=== PATIENT | female | born 1965 | race Caucasian/White ===

== ENCOUNTER 2018-04-11 20:12 | Emergency (ER) | payer OTHER ==
[~2018-04-11] VITALS: Ht 165.1 cm; Wt 81.6 kg
--- NOTE | 2018-04-11 20:30 | NUR ---
PT BIBSELF COMPLAINING OF SOB WITH COUGH X 1WK. PT ALSO COMPLAINING OF BACK PAIN AND RECENT HIGH BP READINGS AT HOME WITH A HISTORY OF HTN. NOTED WHEEZING. PT IS AAOX4. SKIN WARM AND INTACT. NO ACUTE DISTRESS NOTED AT THIS TIME. WILL CONTINUE TO MONITOR, WAITING MD EVALUATION.
--- NOTE | 2018-04-11 20:33 | NUR ---
MD AT BEDSIDE FOR EVALUATION
--- NOTE | 2018-04-11 20:40 | NUR ---
CALLED RT FOR BREATHING TREATMENT
[2018-04-11] MEDS ORDERED: IPRATROPIUM NEB FS 0.5 MG/2.5 ML AMPUL.NEB ONE (20:54)
[2018-04-11] MEDS ORDERED: ALBUTEROL FS 2.5 MG/3 ML VIAL.NEB ONE (20:54)
[2018-04-11] MEDS ORDERED: IPRATROPIUM NEB FS 0.5 MG/2.5 ML AMPUL.NEB NEB ONE (21:00)
[2018-04-11] MEDS ORDERED: ALBUTEROL FS 2.5 MG/3 ML VIAL.NEB NEB ONE (21:00)
--- NOTE | 2018-04-11 21:02 | NUR ---
RT AT BEDSIDE
--- NOTE | 2018-04-11 21:03 | NUR ---
SERIALS LIBRARIAN AT BEDSIDE FOR BLOOD DRAW
--- NOTE | 2018-04-11 21:16 | NUR ---
RADIOLOGIST AT BEDSIDE FOR CXR
[2018-04-11 21:21] LABS: BASOPHILS # (AUTO) 0.1 /CMM (0.0-0.2); BASOPHILS % (AUTO) 1.1 % (0.0-2.0); EOSINOPHILS % (AUTO) 3.9 % (0.0-6.0); HEMATOCRIT 32 % (33-45); HEMOGLOBIN 10.7 g/dL (11.5-14.8); LYMPHOCYTES # (AUTO) 4.1 /CMM (0.8-4.8); LYMPHOCYTES % (AUTO) 40.9 % (20.0-44.0); MEAN CORPUSCULAR HGB CONC 33 g/dl (31.0-36.0); MEAN CORPUSCULAR VOLUME 86 fL (82-100); MONOCYTES # (AUTO) 0.8 /CMM (0.1-1.30); MONOCYTES % (AUTO) 7.7 % (2.0-12.0); NEUTROPHILS # (AUTO) 4.6 /CMM (1.8-8.9); NEUTROPHILS % (AUTO) 46.4 % (43.0-81.0); PLATELET COUNT (AUTO) 295 /CMM (150-450); RED BLOOD CELL COUNT(AUTO) 3.71 MIL/uL (4.0-5.2); WHITE BLOOD COUNT (AUTO) 9.9 K/uL (4.3-11.0)
[2018-04-11 21:34] LABS: CREATININE 2.1 mg/dL (0.6-1.3); POTASSIUM 4.4 mmol/L (3.5-5.1)
[2018-04-11 21:49] LABS: ALBUMIN 2.7 g/dL (3.4-5.0); BILIRUBIN,TOTAL 0.2 mg/dL (0.2-1.0); TOTAL PROTEIN, SERUM 6.4 g/dL (6.4-8.2)
[2018-04-11] MEDS ORDERED: predniSONE 20 MG TABLET PO ONE (22:30)
[2018-04-11] MEDS ORDERED: predniSONE 20 MG TABLET ONE (22:32)
--- NOTE | 2018-04-11 23:06 | NUR ---
Patient discharged to home in stable condition. Written and verbal after care instructions given. Patient verbalizes understanding of instruction. ambulatory with a steady gait noted. pt aaox4 no acute distress noted, resp even and unlabored. pt denies pain or discomfort at this time.
[2018-04-11 23:07] VITALS: BP 138/78
== END 2018-04-11 23:08 | disposition home or self-care (01) ==
LOC: ER 20:15
DX: J45.909 Unspecified asthma, uncomplicated (principal); I12.9 Hypertensive chronic kidney disease with stage 1 through stage 4 chronic kidney disease, or unspecified chronic kidney disease; N18.9 Chronic kidney disease, unspecified; E03.9 Hypothyroidism, unspecified; Z90.89 Acquired absence of other organs; Z90.49 Acquired absence of other specified parts of digestive tract; Z90.710 Acquired absence of both cervix and uterus; Z98.890 Other specified postprocedural states; Z86.73 Personal history of transient ischemic attack (TIA), and cerebral infarction without residual deficits
CPT/HCPCS: 36415; 71045-TC; 80048-TC; 80076-TC; 83880; 84443-TC; 85025-TC; A4606; Z7610

== ENCOUNTER 2019-01-06 23:47 | Emergency (ER) | payer OTHER ==
[~2019-01-06] VITALS: Ht 165.1 cm; Wt 82.6 kg
[2019-01-07] MEDS ORDERED: DEXAMETHASONE SOD PHOSPHATE 4 MG/ML VIAL IM ONE (02:00)
[2019-01-07] MEDS ORDERED: DEXAMETHASONE SOD PHOSPHATE 4 MG/ML VIAL ONE (02:02)
[2019-01-07 02:27] VITALS: BP 138/81
== END 2019-01-07 02:27 | disposition home or self-care (01) ==
LOC: ER 23:52
DX: T78.1XXA Other adverse food reactions, not elsewhere classified, initial encounter (principal); J45.909 Unspecified asthma, uncomplicated; I12.9 Hypertensive chronic kidney disease with stage 1 through stage 4 chronic kidney disease, or unspecified chronic kidney disease; N18.9 Chronic kidney disease, unspecified; E03.9 Hypothyroidism, unspecified; Z90.710 Acquired absence of both cervix and uterus; Z86.73 Personal history of transient ischemic attack (TIA), and cerebral infarction without residual deficits; Z90.49 Acquired absence of other specified parts of digestive tract; Z90.89 Acquired absence of other organs; Z90.81 Acquired absence of spleen; Z91.048 Other nonmedicinal substance allergy status; Z88.5 Allergy status to narcotic agent; X58.XXXA Exposure to other specified factors, initial encounter
CPT/HCPCS: 96372; 99283; J1100

== ENCOUNTER 2019-12-04 22:50 | Emergency (ER) | payer OTHER ==
[~2019-12-04] VITALS: Ht 165.1 cm; Wt 82.6 kg
[2019-12-04 22:50] VITALS: BP 131/91
--- NOTE | 2019-12-04 22:55 | NUR ---
PT CAME TO THE ED C/O SOB X TODAY, WORSE IN THE LAST 30 MINS, USED INHALER AND NEB PT W/ NO RELIEF. WHEEZIN UPON AUSCULTATION NOTED. PT AAOX4,VSS, NOT IN RESPIRATORY DISTRESS. PT CONNECTED TO THE MEDICAL OFFICE ASSISTANT INSTRUCTOR AND POX
[2019-12-04] MEDS ORDERED: DEXAMETHASONE SOD PHOSPHATE 10 MG/ML VIAL ONE (23:28)
[2019-12-04] MEDS ORDERED: DEXAMETHASONE SOD PHOSPHATE 4 MG/ML VIAL IM ONE (23:30)
[2019-12-04] MEDS ORDERED: ALBUTEROL FS 2.5 MG/0.5 ML VIAL.NEB NEB ONE (23:30)
[2019-12-04] MEDS ORDERED: ALBUTEROL FS 2.5 MG/0.5 ML VIAL.NEB ONE (23:36)
--- NOTE | 2019-12-04 23:52 | NUR ---
XRAY AT BEDSIDE
--- NOTE | 2019-12-05 00:42 | NUR ---
Patient discharged to home in stable condition. Written and verbal after care instructions given. Patient verbalizes understanding of instruction.
== END 2019-12-05 00:42 | disposition home or self-care (01) ==
LOC: ER 22:50
DX: J45.909 Unspecified asthma, uncomplicated (principal); I12.9 Hypertensive chronic kidney disease with stage 1 through stage 4 chronic kidney disease, or unspecified chronic kidney disease; N18.9 Chronic kidney disease, unspecified; E03.9 Hypothyroidism, unspecified; Z90.710 Acquired absence of both cervix and uterus; Z90.79 Acquired absence of other genital organ(s); Z90.89 Acquired absence of other organs; Z86.73 Personal history of transient ischemic attack (TIA), and cerebral infarction without residual deficits; Z91.048 Other nonmedicinal substance allergy status; Z88.6 Allergy status to analgesic agent
CPT/HCPCS: 71045; 94640; 96372; 99283; J1100

== ENCOUNTER 2022-05-17 15:30 | Emergency (ER) | payer OTHER ==
--- NOTE | 2022-05-17 16:00 | NUR ---
CALLED TO TRIAGE,NO ANSWER
--- NOTE | 2022-05-17 16:15 | NUR ---
CALLED TO TRIAGE,NO ANSWER
--- NOTE | 2022-05-17 16:38 | NUR ---
CALLED TO TRIAGE,NO ANSWER
== END 2022-05-17 16:39 | disposition left against medical advice (07) ==
LOC: ER 15:39
DX: Z53.21 Procedure and treatment not carried out due to patient leaving prior to being seen by health care provider (principal)